=== PATIENT | female | born 2000 | race Caucasian/White ===

== ENCOUNTER 2021-08-03 18:15 | Emergency (ER) | payer BC, MEDICAID ==
[2021-08-03] MEDS ORDERED: Ondansetron 4 MG/2 ML SDV IVPUSH ONE (18:39)
[2021-08-03] MEDS: Sodium Chloride 0.9% 500 ML IV SCH ×2 (18:44→19:17)
[2021-08-03 18:59] LABS: CHLORIDE,CL 103 mEq/L (98-106); SODIUM,NA 142 mEq/L (136-145)
[2021-08-03] MEDS ORDERED: cefTRIAXone 1 GM Vial IVPUSH ONE (19:07)
[2021-08-03] MEDS ORDERED: Acetaminophen 500 MG Tab PO ONE (19:13)
[2021-08-03] MEDS ORDERED: Sodium Chloride 0.9% 500 ML IV SCH (19:15)
[2021-08-03] MEDS ORDERED: Take Home: Ondansetron 4 MG Tab.DIS, 2 Tab Pack PO ONE (19:26)
== END 2021-08-03 20:05 | disposition home or self-care (01) ==
LOC: CC.ED 18:15
DX: N30.00 Acute cystitis without hematuria (principal); R11.2 Nausea with vomiting, unspecified; Z20.822 Contact with and (suspected) exposure to COVID-19
CPT/HCPCS: 36415; 80053; 81001; 82150; 83690; 85025; 87635; 96374; 96375; 99284; A9270; J0696; J2405; J7040; U0002

== ENCOUNTER 2025-03-24 00:39 | Emergency (ER) | payer BC ==
[2025-03-24] MEDS: Ondansetron 4 MG Tab.DIS PO ONE (01:07)
[2025-03-24 01:27] LABS: BASOPHILS ABSOLUTE AUTO 0.02 10^3/uL (0.00-0.50); BASOPHILS PERCENT AUTO 0.2 % (0-1); EOSINOPHILS ABSOLUTE AUTO 0.11 10^3/uL (0.00-1.50); EOSINOPHILS PERCENT AUTO 1.0 % (0-6); IMMATURE GRAN ABSOLUTE AUTO 0.03 10^3/uL (0.00-0.49); IMMATURE GRAN PERCENT AUTO 0.3 % (0.0-4.9); LYMPHOCYTES ABSOLUTE AUTO 2.37 10^3/uL (0.60-5.00); LYMPHOCYTES PERCENT AUTO 22.1 % (24-44); MONOCYTES ABSOLUTE AUTO 0.63 10^3/uL (0.00-1.50); MONOCYTES PERCENT AUTO 5.9 % (0-10); NEUTROPHILS ABSOLUTE AUTO 7.57 x10^3/uL (1.80-8.00); NEUTROPHILS PERCENT AUTO 70.5 % (41-71); PLATELET COUNT,PLT 216 10^3/uL (150-400); RED BLOOD CELL COUNT 4.16 x10^6/uL (4.00-5.50); WHITE BLOOD CELL COUNT,WBC 10.7 10^3/uL (4.0-11.0)
[2025-03-24 01:32] LABS: APPEARANCE,URINE SLIGHTLY CLOUDY (CLEAR); GLUCOSE,URINE NEGATIVE (NEGATIVE); OCCULT BLOOD,URINE NEGATIVE (NEGATIVE)
[2025-03-24] MEDS ORDERED: Sodium Chloride 0.9% 10 ML Syringe FLUSH PRN (01:35)
[2025-03-24 01:43] LABS: LACTIC ACID 1.2 mmol/L (0.4-2.0)
[2025-03-24 01:50] LABS: INR 0.95 (0.92-1.18); PTT,PARTIAL THROMBOPLSTIN TIME 27.6 SEC (20.0-30.0)
[2025-03-24 01:52] LABS: ALANINE AMINOTRANSFERASE,ALT 16 U/L (12-78); ASPARTATE AMNIOTRANSFERASE,AST 10 U/L (15-37); BILIRUBIN TOTAL 0.3 mg/dL (0.0-1.0); BLOOD UREA NITROGEN,BUN 7 mg/dL (7-18); CARBON DIOXIDE,CO2 26 mmol/L (21-32); CHLORIDE,CL 99 mEq/L (98-106); CREATININE 0.5 mg/dL (0.6-1.0); EST CRCL DRUG DOSING (CG) 161.02 mL/min; ESTIMATED GFR 133 mL/min (>=60); GLUCOSE RANDOM 99 mg/dL (75-99); POTASSIUM,K 3.9 mEq/L (3.5-5.0); PROTEIN TOTAL,TP 7.0 g/dL (6.4-8.2); SODIUM,NA 135 mEq/L (136-145)
[2025-03-24] MEDS: Take Home: Ondansetron 4 MG Tab.DIS, 5 Tab Pack PO ONE (02:46)
== END 2025-03-24 03:06 | disposition home or self-care (01) ==
LOC: CC.ED 00:39
DX: O99.891 Other specified diseases and conditions complicating pregnancy (principal); O21.9 Vomiting of pregnancy, unspecified; R10.9 Unspecified abdominal pain; R11.0 Nausea; Z3A.12 12 weeks gestation of pregnancy
CPT/HCPCS: 36415; 80053; 81003; 83605; 83690; 83735; 85025; 85610; 85730; 86140; 96360; 99283; 99284; A9270; J7030; Q0162